=== PATIENT | male | born 1985 | race African-American/Black ===

== ENCOUNTER 2016-07-05 17:09 | Emergency (ER) | payer OTHER ==
[~2016-07-05] VITALS: Ht 182.9 cm; Wt 72.6 kg
[~2016-07-05 17:09] MED LIST: ASPI-482 PO; FOLI1TAB16 PO; LEVO125T PO; LEVO88TA2 PO; MULT-245 PO; NAPR250T2 PO; OXYC-323 PO
[2016-07-05] MEDS ORDERED: IV NORMAL SALINE 1000ML BAG 1,000 ML IV SCH (18:00)
[2016-07-05] MEDS ORDERED: MORPHINE SULFATE 4 MG/ML DISP.SYRIN. IV/SQ PRN (18:00)
[2016-07-05] MEDS ORDERED: ONDANSETRON PF 4 MG/2 ML VIAL. IV ONE (18:15)
[2016-07-05] MEDS ORDERED: FAMOTIDINE 20 MG/2 ML VIAL IVP ONE (18:15)
[2016-07-05 18:16] LABS: BILIRUBIN,URINE NEGATIVE (NEG); GLUCOSE,URINE NEGATIVE (NEG); NITRITE,URINE NEGATIVE (NEG); PH,URINE 6.5; PROTEIN,URINE 100 mg/dL (NEG-TRACE)
[2016-07-05 18:23] LABS: BACTERIA,URINE 0 /HPF (0-FEW); SQUAMOUS EPITHELIAL CELL,UR FEW /LPF
[2016-07-05 18:27] LABS: BASO # 0.1 x10^3/uL (0.0-0.2); BASO % 0 % (0-3); EOS % 0 % (0-3); HEMOGLOBIN 7.1 g/dL (13.0-17.5); LYMPH % 6 % (24-48); MEAN CORPUSCULAR HEMOGLOBIN 36 pg (25-35); MEAN CORPUSCULAR HGB CONC 37 g/dL (31-37); MEAN CORPUSCULAR VOLUME 97 fL (79-100); MONO % 6 % (0-9); NEUT % 87 % (31-73); PLATELET COUNT 360 x10^3/uL (140-400); RED CELL DISTRIBUTION WIDTH 24.8 % (11.5-14.5); WHITE BLOOD COUNT 16.4 x10^3/uL (4.0-11.0)
[2016-07-05 18:38] LABS: HEMATOCRIT 19.4 % (39.0-53.0)
[2016-07-05 18:39] LABS: INR 1.2 (0.8-1.1); PROTHROMBIN TIME PATIENT 14.3 SEC (11.7-14.0)
[2016-07-05 18:43] LABS: CREATININE 0.8 mg/dL (0.7-1.3); GFR 135.6; POTASSIUM 4.9 mmol/L (3.5-5.1)
[2016-07-05 18:48] LABS: ALBUMIN 4.3 g/dL (3.4-5.0); ALBUMIN/GLOBULIN RATIO 1.2 (1.0-1.7); TOTAL BILIRUBIN 3.8 mg/dL (0.2-1.0); TOTAL PROTEIN 7.9 g/dL (6.4-8.2)
[2016-07-05 19:29] LABS: ANISOCYTOSIS MARKED; PLT ESTIMATE ADEQUATE (ADEQUATE); SICKLE CELLS MANY
[2016-07-05 19:30] LABS: POLYCHROMASIA SLIGHT; TARGET CELLS MOD
[2016-07-05] MEDS ORDERED: ONDA4TAB10 SL (20:30)
[2016-07-05] MEDS ORDERED: HYDR-971 PO (20:30)
[2016-07-05] MEDS ORDERED: FAMO-63 PO (20:30)
--- NOTE | 2016-07-05 20:31 | PHYS DOC ---
Past Medical History Past Medical History: Sickle Cell Disease, Other Additional Past Medical Histor: enlarged heart Past Surgical History: Cholecystectomy, Tonsillectomy Additional Past Surgical Histo: adenoidectomy Additional Information: 0.25 PPD Alcohol Use: Occasionally Drug Use: Marijuana Adult General Chief Complaint Chief Complaint: ABDOMINAL PAIN HPI HPI Patient is a 31 year old male who presents with complaint of abdominal pain and vomiting. Patient states that he started having symptoms earlier today and has had constant symptoms throughout the day. Patient states he's had several episodes of vomiting and has noticed over the last few episodes to have small amounts of blood. Patient states he has history of sickle cell anemia. Patient does not follow the primary physician currently. Patient states that he is having abdominal pain but denies any chest pain or shortness of breath currently. Patient rates his pain currently is 8 out of 10 on my exam. Denies bloody or tarry stools. Patient has not taken any medications to help with symptoms at this time. Review of Systems Review of Systems Constitutional: Denies fever or chills [] Eyes: Denies change in visual acuity, redness, or eye pain [] HENT: Denies nasal congestion or sore throat [] Respiratory: Denies cough or shortness of breath [] Cardiovascular: Denies chest pain or edema [] GI: Vomiting, abdominal pain [] : Denies dysuria or hematuria [] Musculoskeletal: Denies back pain or joint pain [] Integument: Denies rash or skin lesions [] Neurologic: Denies headache, focal weakness or sensory changes [] Current Medications Current Medications Current Medications Medications (Trade) Dose Ordered Sig/Raymond Start Time Stop Time Status Last Admin Dose Admin Famotidine (Pepcid) 20 mg 1X ONCE 07/05/16 18:15 07/05/16 18:16 DC 07/05/16 18:30 20 MG Morphine Sulfate 4 mg 4 mg PRN Q15MIN PRN 07/05/16 18:00 07/05/16 20:52 DC 07/05/16 18:33 4 MG Ondansetron HCl (Zofran) 4 mg 1X ONCE 07/05/16 18:15 07/05/16 18:16 DC 07/05/16 18:29 4 MG Sodium Chloride (Iv Sodium Chloride 0.9% 1000ml Bag) 1,000 ml @ 1,000 mls/hr Q1H 07/05/16 18:00 07/05/16 18:59 DC 07/05/16 18:29 1,000 MLS/HR Allergies Allergies Allergies Coded Allergies Type Severity Reaction Last Updated Verified No Known Drug Allergies 08/28/15 No Physical Exam Physical Exam Constitutional: Alert, afebrile, appears in mild to moderate discomfort. [] HENT: Normocephalic, atraumatic, bilateral external ears normal, oropharynx moist, no oral exudates, nose normal. [] Eyes: PERRLA, EOMI, conjunctiva normal, scleral icterus present. [] Neck: Normal range of motion, no tenderness, supple, no stridor. [] Cardiovascular:Heart rate regular rhythm, no murmur [] Lungs & Thorax: Bilateral breath sounds clear to auscultation [] Abdomen: Bowel sounds normal, soft, generalized tenderness palpation in all 4 quadrants, no masses, no pulsatile masses. [] Skin: Warm, dry, no erythema, no rash. [] Back: No tenderness, no CVA tenderness. [] Extremities: No tenderness, no cyanosis, no clubbing, ROM intact, no edema. [] Neurologic: Alert and oriented X 3, normal motor function, normal sensory function, no focal deficits noted. [] Current Patient Data Vital Signs Vital Signs Date Time Temp Pulse Resp B/P Pulse Ox O2 Delivery O2 Flow Rate FiO2 07/05/16 20:39 74 24 113/60 95 Room Air 07/05/16 17:27 98.1 98.1 Lab Values Laboratory Tests Test 07/05/16 17:30 07/05/16 18:14 Urine Collection Type Unknown Urine Color [place] Urine Clarity Clear Urine pH 6.5 Urine Specific [place] 1.010 Urine Protein 100mg/dL (NEG-TRACE) Urine Glucose (UA) Negativemg/dL (NEG) Urine Ketones (Stick) Negativemg/dL (NEG) Urine Blood Moderate (NEG) Urine Nitrite Negative (NEG) Urine Bilirubin Negative (NEG) Urine Urobilinogen Dipstick 1.0mg/dL (0.2 mg/dL) Urine Leukocyte Esterase Trace (NEG) Urine RBC 11-20/HPF (0-2) Urine WBC 1-4/HPF (0-4) Urine Squamous Epithelial Cells Few/LPF Urine Amorphous Sediment Present/HPF Urine Bacteria 0/HPF (0-FEW) Urine Mucus Slight/LPF White Blood Count 16.4x10^3/uL (4.0-11.0) H Red Blood Count 2.00x10^6/uL (4.30-5.70) L Hemoglobin 7.1g/dL (13.0-17.5) L Hematocrit 19.4% (39.0-53.0) *L Mean Corpuscular Volume 97fL (79-100) Mean Corpuscular Hemoglobin 36pg (25-35) H Mean Corpuscular Hemoglobin Concent 37g/dL (31-37) Red Cell Distribution Width 24.8% (11.5-14.5) H Platelet Count 360x10^3/uL (140-400) Neutrophils (%) (Auto) 87% (31-73) H Lymphocytes (%) (Auto) 6% (24-48) L Monocytes (%) (Auto) 6% (0-9) Eosinophils (%) (Auto) 0% (0-3) Basophils (%) (Auto) 0% (0-3) Neutrophils # (Auto) 14.3x10^3uL (1.8-7.7) H Lymphocytes # (Auto) 1.0x10^3/uL (1.0-4.8) Monocytes # (Auto) 1.0x10^3/uL (0.0-1.1) Eosinophils # (Auto) 0.0x10^3/uL (0.0-0.7) Basophils # (Auto) 0.1x10^3/uL (0.0-0.2) Segmented Neutrophils % 75% (35-66) H Band Neutrophils % 14% (0-9) H Lymphocytes % 2% (24-48) L Monocytes % 9% (0-10) Platelet Estimate Adequate (ADEQUATE) Polychromasia Slight Anisocytosis Marked Sickle Cells Many Target Cells Mod Reticulocyte Count (auto) 6.0% (0.5-2.5) H Prothrombin Time 14.3SEC (11.7-14.0) H Prothrombin Time INR 1.2 (0.8-1.1) H PTT 29SEC (24-38) Sodium Level 143mmol/L (136-145) Potassium Level 4.9mmol/L (3.5-5.1) Chloride Level 109mmol/L (98-107) H Carbon Dioxide Level 26mmol/L (21-32) Anion Gap 8 (6-14) Blood Urea Nitrogen 14mg/dL (8-26) Creatinine 0.8mg/dL (0.7-1.3) Estimated GFR (Cockcroft-Gault) 135.6 BUN/Creatinine Ratio 18 (6-20) Glucose Level 111mg/dL (70-99) H Calcium Level 9.0mg/dL (8.5-10.1) Total Bilirubin 3.8mg/dL (0.2-1.0) H Aspartate Amino Transferase (AST) 60U/L (15-37) H Alanine Aminotransferase (ALT) 28U/L (16-63) Alkaline Phosphatase 62U/L (46-116) Total Protein 7.9g/dL (6.4-8.2) Albumin 4.3g/dL (3.4-5.0) Albumin/Globulin Ratio 1.2 (1.0-1.7) Laboratory Tests 07/05/16 18:14 Laboratory Tests 07/05/16 18:14 EKG EKG Not performed [] Radiology/Procedures Radiology/Procedures Not performed [] Course & Med Decision Making Course & Med Decision Making Pertinent Labs and Imaging studies reviewed. (See chart for details) Patient started on IV fluids, Zofran, Pepcid, and morphine. Patient's small amount of hematemesis consistent with a Kathi-Day tear from repeated retching and vomiting. Patient's lab work was reviewed and noted hemoglobin of 7.1. Patient's hemoglobin was trended from past values and noted to be low but stable. Patient's reticulocyte cell count is elevated as expected. Patient also found to have a bilirubin of 3.8 which is elevated but not critical at this time. Patient was able to tolerate oral fluids in the emergency department and on reevaluation the patient states he feels much better at this time. The patient was offered admission to the hospital versus outpatient treatment. Patient elected outpatient treatment which is not unreasonable at this time as patient will need continued oral hydration and pain management. I did advise that if patient has any worsening symptoms that he return immediately to the emergency department. Recommended follow-up in 3-5 days with primary doctor and return to the emergency department for any worsening symptoms. Dragon Disclaimer Dragon Disclaimer This electronic medical record was generated, in whole or in part, using a voice recognition dictation system. Departure Departure Impression: Primary Impression: Sickle cell anemia Additional Impression: Nausea and vomiting Disposition: 01 HOME, SELF-CARE Condition: IMPROVED Referrals: NO PCP (PCP) Patient Instructions: Nausea and Vomiting, Sickle Cell Anemia Additional Instructions: Follow-up with your primary doctor in 3-5 days. Return to the emergency department for any worsening symptoms. Scripts Famotidine (Pepcid)20 Mg Opguwx13 Mg PO BID #30 TAB Prov:TRISTEN SOMERS MD 07/05/16 Hydrocodone/Apap 5-325 ([place] 5-325 Tablet)1 Each Tablet1-2 Tab PO Q4-6HRS PRN PAIN #20 TAB Prov:TRISTEN SOMERS MD 07/05/16 Ondansetron (Zofran Odt)4 Mg Tab.rapdis1 Tab SL Q8HRS PRN NAUSEA/VOMITING #15 TAB Prov:TRISTEN SOMERS MD 07/05/16 Problem Qualifiers Primary Impression: Sickle cell anemia Sickle-cell associated disorders: with unspecified crisis Qualified Code: D57.00 - Hb-SS disease with crisis, unspecified Additional Impression: Nausea and vomiting Vomiting type: unspecified Vomiting Intractability: non-intractable Qualified Code: R11.2 - Nausea with vomiting, unspecified TRISTEN SOMERS MD Jul 05, 2016 20:31
[2016-07-05 20:39] VITALS: BP 113/60
== END 2016-07-05 20:47 | disposition home or self-care (01) ==
LOC: ER 17:09
DX: D57.00 Hb-SS disease with crisis, unspecified (principal); R11.2 Nausea with vomiting, unspecified; R74.8 Abnormal levels of other serum enzymes; R10.84 Generalized abdominal pain; I51.7 Cardiomegaly; F17.200 Nicotine dependence, unspecified, uncomplicated; F12.10 Cannabis abuse, uncomplicated
CPT/HCPCS: 36415; 80053; 81001; 85007; 85027; 85045; 85610; 85730; 87086; 96361; 96374; 96375; 99285; J2270; J2405; J7030; S0028

== ENCOUNTER 2016-08-21 12:08 | Emergency (ER) | payer OTHER ==
[~2016-08-21] VITALS: Ht 170.2 cm; Wt 72.6 kg
[~2016-08-21 12:08] MED LIST changes: +FAMO-63 PO; +HYDR-971 PO; +ONDA4TAB10 SL
[2016-08-21] MEDS ORDERED: CYCLOBENZAPRINE 10 MG TABLET. PO ONE (12:45)
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
[2016-08-21] MEDS ORDERED: CYCL10TA2 PO (13:13)
[2016-08-21 13:25] VITALS: BP 114/62
== END 2016-08-21 13:30 | disposition home or self-care (01) ==
LOC: ER 12:08
DX: R07.89 Other chest pain (principal); M54.2 Cervicalgia; I51.7 Cardiomegaly; F12.10 Cannabis abuse, uncomplicated; V49.50XA Passenger injured in collision with unspecified motor vehicles in traffic accident, initial encounter; Y93.I9 Activity, other involving external motion; Y92.410 Unspecified street and highway as the place of occurrence of the external cause; Y99.8 Other external cause status
CPT/HCPCS: 71020; 99284-25

== ENCOUNTER 2016-09-03 13:51 | Emergency (ER) | payer OTHER ==
[~2016-09-03] VITALS: Ht 182.9 cm; Wt 68.0 kg
[~2016-09-03 13:51] MED LIST changes: +CYCL10TA2 PO
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
[2016-09-03 14:29] LABS: BASO # 0.1 x10^3/uL (0.0-0.2); BASO % 1 % (0-3); EOS % 6 % (0-3); HEMOGLOBIN 7.1 g/dL (13.0-17.5); LYMPH # 2.3 x10^3/uL (1.0-4.8); LYMPH % 16 % (24-48); MEAN CORPUSCULAR HEMOGLOBIN 35 pg (25-35); MEAN CORPUSCULAR VOLUME 92 fL (79-100); MONO % 14 % (0-9); NEUT % 64 % (31-73); PLATELET COUNT 425 x10^3/uL (140-400); RED BLOOD COUNT 2.01 x10^6/uL (4.30-5.70); RED CELL DISTRIBUTION WIDTH 23.4 % (11.5-14.5); RETIC COUNT 7.5 % (0.5-2.5); WHITE BLOOD COUNT 14.5 x10^3/uL (4.0-11.0)
[2016-09-03] MEDS: MORPHINE SULFATE 4 MG/ML DISP.SYRIN. IV/SQ PRN ×2 (14:30→15:38)
[2016-09-03] MEDS ORDERED: IV NORMAL SALINE 1000ML BAG 1,000 ML IV SCH (14:30)
[2016-09-03] MEDS ORDERED: ONDANSETRON PF 4 MG/2 ML VIAL. IV ONE (14:30)
[2016-09-03 14:35] LABS: HEMATOCRIT 18.5 % (39.0-53.0)
[2016-09-03 14:36] LABS: CALCIUM 8.7 mg/dL (8.5-10.1); CREATININE 0.8 mg/dL (0.7-1.3); GFR 135.6; MEAN CORPUSCULAR HGB CONC 38 g/dL (31-37); POTASSIUM 4.4 mmol/L (3.5-5.1)
[2016-09-03 14:43] LABS: TOTAL BILIRUBIN 3.2 mg/dL (0.2-1.0); TOTAL PROTEIN 7.4 g/dL (6.4-8.2)
[2016-09-03 14:44] LABS: DIRECT BILIRUBIN 0.3 mg/dL (0.0-0.2); MAGNESIUM 2.1 mg/dL (1.8-2.4)
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
[2016-09-03 16:22] VITALS: BP 120/60
[2016-09-03] MEDS ORDERED: HYDR-971 PO (16:50)
[2016-09-03 17:57] LABS: % EOS 13 % (0-5)
[2016-09-03 17:59] LABS: PLT ESTIMATE INCREASED (ADEQUATE)
[2016-09-03 18:00] LABS: ANISOCYTOSIS MOD; HYPOCHROMIA MOD; MICROCYTOSIS MOD; POIKILOCYTOSIS MARKED; POLYCHROMASIA SLIGHT
[2016-09-03 18:01] LABS: OVALOCYTES FEW; SICKLE CELLS MANY; TARGET CELLS MOD; TEAR DROP CELLS FEW
--- NOTE | 2016-09-04 07:52 | EKG ---
[facility] [address] [place] [address] Test Date: 2016-09-03 Test Time: 13:57:34 Pat Name: ANYA FUENTES Department: Room: Gender: M Security And Compliance Analyst: : 1985 Requested By: TRISTEN SOMERS Order Number: [id number] Reading MD: Pretty Damon Measurements Intervals [place] Rate: 79 P: 41 VA: 160 QRS: 46 QRSD: 100 T: 17 QT: 352 QTc: 405 Interpretive Statements SINUS RHYTHM NORMAL EKG Electronically Signed On 09-06-2016 22:22:42 CDT by Pretty Damon
== END 2016-09-03 17:05 | disposition home or self-care (01) ==
LOC: ER 13:51
DX: R07.89 Other chest pain (principal); D57.1 Sickle-cell disease without crisis; I51.7 Cardiomegaly; F12.10 Cannabis abuse, uncomplicated; F17.210 Nicotine dependence, cigarettes, uncomplicated; Z90.49 Acquired absence of other specified parts of digestive tract; Z90.89 Acquired absence of other organs
CPT/HCPCS: 36415; 71020; 80048; 80076; 83735; 85007; 85027; 85045; 93005; 96361; 96374; 96375; 96376; 99285; J2270; J2405; J7030